=== PATIENT | female | born 1995 | race Caucasian/White ===

== ENCOUNTER 2021-03-26 10:18 | Emergency (ER) | payer SELFPAY ==
[~2021-03-26] VITALS: Ht 172.7 cm; Wt 72.6 kg
[2021-03-26 11:11] LABS: CLARITY,URINE CLEAR (CLEAR); COLOR,URINE YELLOW (YELLOW); KETONES,URINE NEGATIVE (NEGATIVE); LEUKOCYTE ESTERASE ,URINE NEGATIVE (NEGATIVE); NITRITE,URINE NEGATIVE (NEGATIVE); PROTEIN,URINE DIPSTICK NEGATIVE (NEGATIVE); URINE UROBILINOGEN 0.2 mg/dL (0.2 - 1)
[2021-03-26 11:32] LABS: WBC,URINE (MAN) 0-5 /HPF (0-5)
[2021-03-26 11:33] LABS: BACTERIA,URINE RARE /HPF; EPITHELIAL CELLS,URINE RARE /LPF; RBC,URINE >50 /HPF (0-5)
== END 2021-03-26 11:34 | disposition home or self-care (01) ==
LOC: ER 11:32
DX: N93.8 Other specified abnormal uterine and vaginal bleeding (principal)
CPT/HCPCS: 81001; 81025; 99282